=== PATIENT | female | born 1965 | race Caucasian/White ===

== ENCOUNTER 2021-03-28 07:36 | Day surgery (SDC) | payer OTHER, SELFPAY ==
[~2021-03-28] VITALS: Ht 165.1 cm; Wt 81.6 kg
[2021-03-28] MEDS ORDERED: diphenhydrAMINE 50 MG/ML VIAL ONE (09:24)
[2021-03-28] MEDS ORDERED: MIDAZOLAM 5 MG/5 ML VIAL ONE (09:25)
[2021-03-28] MEDS ORDERED: fentaNYL citrate 0.05 MG/ML VIAL ONE (09:26)
[2021-03-28] MEDS ORDERED: LIDOCAINE 2% 100 MG/5 ML UJET TP ONE (09:26)
[2021-03-28] MEDS ORDERED: MIDAZOLAM 2 MG/2 ML VIAL IVP ONE (10:10)
[2021-03-28] MEDS ORDERED: fentaNYL citrate 0.05 MG/ML VIAL IVP ONE (10:10)
== END 2021-03-28 11:27 | disposition home or self-care (01) ==
LOC: MDS 07:36 → MMU 07:38 → MDS 11:27
PROVIDERS: ATTEND Internal Medicine Gastroenterology
DX: R19.5 Other fecal abnormalities (principal); K63.5 Polyp of colon; K57.30 Diverticulosis of large intestine without perforation or abscess without bleeding; Z88.0 Allergy status to penicillin; Z88.2 Allergy status to sulfonamides; Z20.822 Contact with and (suspected) exposure to COVID-19
CPT/HCPCS: 45385; 88305; J2250; J3010; U0003; J1200